=== PATIENT | male | born 1950 | race Caucasian/White ===

== ENCOUNTER 2022-03-15 11:42 | Day surgery (SDC) | payer MEDICARE ==
[~2022-03-15] VITALS: Ht 175.3 cm; Wt 74.2 kg
[2022-03-15] MEDS ORDERED: normal saline 1000ml 1,000 ML IV PRN (12:10)
[2022-03-15] MEDS ORDERED: ONDA-104 PO (12:14)
[2022-03-15] MEDS ORDERED: PROC10TA10 PO (12:14)
[2022-03-15] MEDS ORDERED: normal saline 1000ml 1,000 ML IV SCH (15:20)
[2022-03-15] MEDS ORDERED: FENTANYL CITRATE/PF 50 MCG/1 ML VIAL ONE (15:25)
[2022-03-15] MEDS ORDERED: heparin sodium, porcine/PF 100unit/ml 5ML syringe ONE (15:25)
[2022-03-15] MEDS ORDERED: midazolam 1 mg/ML 2ml injection ONE (15:26)
[2022-03-15 16:06] VITALS: BP 139/91
[2022-03-15 16:15] VITALS: BP 137/88
[2022-03-15 16:30] VITALS: BP 144/86
[2022-03-15 16:45] VITALS: BP 143/88
== END 2022-03-15 17:05 | disposition home or self-care (01) ==
LOC: SSTAY O 11:42
PROVIDERS: ATTEND Radiology Diagnostic Radiology
DX: C21.0 Malignant neoplasm of anus, unspecified (principal); C78.7 Secondary malignant neoplasm of liver and intrahepatic bile duct; Z79.899 Other long term (current) drug therapy
CPT/HCPCS: 36561; 76937; 77001; 99152; C1769; C1788; C1894; J1642; J2250; J3010; J7030; 99153; A4620